=== PATIENT | male | born 1990 | race Caucasian/White ===

== ENCOUNTER 2017-01-07 13:11 | Emergency (ER) | payer MEDICAID ==
[2017-01-07 13:18] VITALS: TEMP 97.5
--- NOTE | 2017-01-07 14:39 | EDPHY ---
H & P Stated Complaint: N/V this morning ; pt states she thinks he's having a panic attack Time Seen by Provider: 01/07/17 14:38 - Medical/Surgical History Hx Asthma: No Hx Chronic Respiratory Disease: No Hx Diabetes: No Hx Cardiac Disease: No Hx Renal Disease: No Hx Cirrhosis: No Hx Alcoholism: No Hx HIV/AIDS: No Hx Splenectomy or Spleen Trauma: No Other PMH: PSH: shoulder separtion. PMH: Panic attacks; r wrist fx x2; L wrist fx; L thumb fx; - Social History Smoking Status: Former smoker Constitutional: Initial Vital Signs Temperature (C) 36.4 C 01/07/17 13:16 Heart Rate 71 01/07/17 13:16 Respiratory Rate 20 01/07/17 13:16 Blood Pressure 123/67 H 01/07/17 13:16 O2 Sat (%) 100 01/07/17 13:16 O2 Delivery Mode Room Air Allergies/Adverse Reactions: No Known Allergies Allergy (Verified 01/07/17 13:15) Home Medications: Medication Instructions Recorded LORazepam [Ativan 1 mg (RX)] 1 mg PO TID PRN #14 tab 01/07/17 Medical Decision Making ED Course/Re-evaluation: CHIEF COMPLAINT: Anxiety, panic attack HISTORY OF PRESENT ILLNESS: This patient is a 26 year old male with history of anxiety who presents to the Emergency Department complaining that he is experiencing a panic attack that he describes as similar to prior episodes. He describes nausea, vomiting, and intermittent chest pain with palpitations. He denies diaphoresis, dyspnea, or any additional complaints. No thoughts of self harm or harming others. He denies any recent stressful events. He has no additional complaints. REVIEW OF SYSTEMS: A 10 point review of systems was performed and is negative with the exception of the elements mentioned in the history of present illness. PHYSICAL EXAM: HR 71, BP 123/67, O2 Sat 100, RR 20. Temp noted General Appearance: Alert, well hydrated, appropriate, and non-toxic appearing. Head: Atraumatic without scalp tenderness or obvious injury Eyes: Pupils equal, round, reactive to light and accommodation, EOMI, no trauma , no injection. Ears: Clear bilaterally, no perforation, normal landmarks Nose: Atraumatic, no rhinorrhea, clear. Throat: There is no erythema or exudates, no lesions, normal tonsils, mucus membranes moist. Neck: Supple, 2+ carotid upstroke, nontender, no lymphadenopathy. Respiratory: No retractions, no distress, no wheezes, and no accessory muscle use. Lungs are clear to auscultation bilaterally. Cardiovascular: Regular rate and rhythm, no murmurs, rubs, or gallops. Bilateral carotid, radial, dorsalis pedis, and posterior tibial pulses intact. Good capillary refill all extremities. Gastrointestinal: Abdomen is soft, nontender, non-distended, no masses, no rebound, no guarding, no peritoneal signs. Musculoskeletal: Normal active ROM of all extremities, atraumatic. Neurological: Alert, appropriate, and interactive. The patient has normal DTRs and non-focal cranial nerves, motor, sensory, and cerebellar exam. Skin: No rashes, good turgor, no nodules on palpation. Past medical history: Anxiety with panic attacks Past surgical history: Denies Family history: Non-contributory Social history: Works at [employer], denies substance abuse DIFFERENTIAL DIAGNOSIS: Differential diagnosis for the patient's anxiety includes: generalized anxiety disorder, panic disorder, electrolyte abnormalities, or substance abuse. MEDICAL DECISION MAKING: This patient is a 26 year old male with history of anxiety who presents with symptoms reminiscent of prior panic attacks including chest pain and heart palpitations. He has no additional complaints. His exam is benign. I am not suspicious of cardiac etiology given the patient's age and presentation along with history of similar panic episodes. 1mg PO Ativan administered for anxiety. Will consult with counseling case manager to discuss appropriate outpatient management of the patient's anxiety. - Data Points Medications Given: Discontinued Medications Lorazepam (Ativan) 1 mg PO EDNOW ONE Stop: 01/07/17 14:44 Last Admin: 01/07/17 14:44 Dose: 1 mg Departure - Departure Disposition: Home, Routine, Self-Care Clinical Impression: Panic disorder, Anxiety Condition: Good Instructions: Panic Disorder (ED), Anxiety (ED) Additional Instructions: 1. Take Ativan as prescribed as needed for anxiety or panic attacks. 2. Schedule a follow-up appointment with a psychiatrist to discuss long-term management of your anxiety. You may use the resources provided by our counseling case manager. 3. Return to the Emergency Department if you experience worsening chest pain, pain radiating to your arm, neck or jaw, thoughts of self harm, worsening anxiety, or other serious concerns. Referrals: [facility],. [Clinic] - As per Instructions Prescriptions: LORazepam [Ativan 1 mg (RX)] 1 mg PO TID PRN #14 tab PRN Reason: Anxiety Report Scribed for: Too Collins Report Scribed by: Reny Card Date of Report: 01/07/17 Time of Report: 14:44
[2017-01-07] MEDS ORDERED: LORazepam 1 MG TAB PO ONE (14:43)
[2017-01-07] MEDS ORDERED: LORazepam 1 MG TAB ONE (14:43)
[2017-01-07 14:55] VITALS: BP 122/61; PULSE 70; RESP 16; O2SAT 97
== END 2017-01-07 14:55 | disposition home or self-care (01) ==
DX: F41.0 Panic disorder [episodic paroxysmal anxiety] (principal); Z87.891 Personal history of nicotine dependence

== ENCOUNTER 2017-07-28 18:10 | Emergency (ER) | payer MEDICAID ==
[2017-07-28 18:16] VITALS: BP 120/88; PULSE 85; RESP 20; TEMP 98.6; O2SAT 100
--- NOTE | 2017-07-28 18:30 | EDPHY ---
H & P Time Seen by Provider: 07/28/17 18:17 HPI/ROS: CHIEF COMPLAINT: Cramps HISTORY OF PRESENT ILLNESS: This patient is a 26 y/o male with history of anxiety complaining of finger and hand cramping. Just [employer], he went to the restroom because of nausea and began to feel very tense. He became anxious and then developed paresthesias in his extremities , associated with hyperventilation and tachycardia. Following this, he began to have spasms of his hands and arms and cramping throughout his body. He has had panic attacks in the past, but never so severe as today. He feels much better now. He denies any recent illness. No fever, abdominal pain, chest pain, or other associated symptoms. REVIEW OF SYSTEMS: A 10 point review of systems was performed and is negative with the exception of the elements mentioned in the history of present illness. Past Medical/Surgical History: Anxiety Social History: Friend at bedside. Former smoker. Student at [employer]. Smoking Status: Former smoker Physical Exam: General Appearance: Alert, appears anxious Eyes: Pupils equal and round, no conjunctival pallor or injection ENT, Mouth: Mucous membranes moist Neck: Normal inspection Respiratory: Lungs are clear to auscultation Cardiovascular: Regular rate and rhythm Gastrointestinal: Abdomen is soft and non- tender Neurological: A&O, nonfocal, normal gait Skin: Warm and dry Extremities: Normal inspection, no carpopedal spasm Psychiatric: Anxious Constitutional: Initial Vital Signs Temperature (C) 37.0 C 07/28/17 18:13 Heart Rate 85 07/28/17 18:13 Respiratory Rate 20 07/28/17 18:13 Blood Pressure 120/88 H 07/28/17 18:13 O2 Sat (%) 100 07/28/17 18:13 O2 Delivery Mode Room Air Allergies/Adverse Reactions: No Known Allergies Allergy (Verified 01/07/17 13:15) Home Medications: Medication Instructions Recorded NK [No Known Home Meds] 07/28/17 Medical Decision Making ED Course/Re-evaluation: 26 y/o male presents follow a panic attack sustained shortly prior to arrival. By the time of my interview, he is feeling better and is able to move his hands and arms normally. He still feels quite anxious and is experiencing some tightness in his muscles. Plan to administer 1mg PO Ativan for symptom relief. Plan to d/c home in good condition. I recommend follow up with PCP and his psychologist. He agrees to this. Return precautions discussed. The patient is comfortable with this plan. Differential Diagnosis: Includes though not limited to hypoglycemia, hypokalemia, dehydration - Data Points Medications Given: Discontinued Medications Lorazepam (Ativan) 1 mg PO EDNOW ONE Stop: 07/28/17 18:38 Last Admin: 07/28/17 18:48 Dose: 1 mg Departure - Departure Disposition: Home, Routine, Self-Care Clinical Impression: Panic attack Condition: Good Instructions: Anxiety (ED), Panic Attack (ED) Additional Instructions: 1. Please follow up with your primary care physician and your psychologist regarding this event. 2. Return to the emergency department if you develop chest pain, shortness of breath, fever, or other worsening of condition. Referrals: [facility] [Other] - As per Instructions Report Scribed for: Sudha Guerra Report Scribed by: Hanny Adams Date of Report: 07/28/17 Time of Report: 18:29 Physician Review and Approval Statement: 07/28/17 18:29 Portions of this note were transcribed by a registered medical transcriptionist. I personally performed a history, physical exam, medical decision making, and confirmed accuracy of information the transcribed note.
[2017-07-28] MEDS ORDERED: LORazepam 1 MG TAB PO ONE (18:37)
== END 2017-07-28 18:50 | disposition home or self-care (01) ==
DX: F41.0 Panic disorder [episodic paroxysmal anxiety] (principal); Z87.891 Personal history of nicotine dependence

== ENCOUNTER 2017-12-28 03:35 | Emergency (ER) | payer MEDICAID ==
[2017-12-28 03:43] VITALS: BP 142/88
[2017-12-28] MEDS ORDERED: IBUPROFEN 200 MG TAB PO ONE (05:00)
[2017-12-28] MEDS ORDERED: ALPRAZolam 1 MG TAB ONE (05:41)
[2017-12-28] MEDS ORDERED: LORazepam 1 MG TAB PO ONE (05:42)
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
== END 2017-12-28 06:22 | disposition home or self-care (01) ==
PROC: 0HQ0XZZ Repair Scalp Skin, External Approach (ICD-10-PCS; principal; 2017-12-28)
PROC: 0CQ1XZZ Repair Lower Lip, External Approach (ICD-10-PCS; principal; 2017-12-28)
DX: S01.01XA Laceration without foreign body of scalp, initial encounter (principal); S01.511A Laceration without foreign body of lip, initial encounter; Z87.891 Personal history of nicotine dependence; Y04.2XXA Assault by strike against or bumped into by another person, initial encounter; Y92.410 Unspecified street and highway as the place of occurrence of the external cause; Y99.8 Other external cause status; Y93.01 Activity, walking, marching and hiking

== ENCOUNTER 2018-02-12 13:30 | Emergency (ER) | payer MEDICAID ==
--- NOTE | 2018-02-12 16:03 | EDPHY ---
H & P Time Seen by Provider: 02/12/18 15:50 HPI/ROS: Chief complaint. Constipation HPI. 27-year-old male presents emergency department with constipation. He has a history of irregular bowel movements. He has had hard stool recently. Last bowel movement was February 03. Patient has tried MiraLax, self administered enema , magnesium citrate, another self administrated enema. He feels backed up. He has had gas but no stool. No change in activity or eating. No real abdominal pain though he feels backed up. No nausea vomiting or fever. No previous abdominal surgery ROS Constitutional. no fever/chills, no weakness Eyes. no problems with vision ENT. no sore throat, no nasal drainage Cardiovascular. no chest pain Respiratory. no shortness of breath, no cough Abdominal. Abdominal fullness and constipation . no problems urinating MS. no calf pain/swelling, no neck/back pain, no joint pain Skin. no rash Lymph. no swollen glands Neuro. no headache, no dizziness, no difficulty walking or with speech Past Medical/Surgical History: Shoulder separation, anxiety and panic attacks, orthopedic injuries Social History: Single, nonsmoker, no alcohol Smoking Status: Former smoker Physical Exam: General Appearance: Alert well-developed male mild distress vital signs are stable Eyes: Pupils equal and round no pallor or injection. ENT, Mouth: Mucous membranes are moist. Respiratory: There are no retractions, lungs are clear to auscultation. Cardiovascular: Regular rate and rhythm. Gastrointestinal: Abdomen is soft and nontender, no masses, bowel sounds normal. Neurological: Awake and alert, sensory and motor exams grossly normal. Skin: Warm and dry, no rashes. Musculoskeletal: Neck is supple nontender. Extremities symmetrical, full range of motion. Psychiatric: Patient is oriented X 3, there is no agitation. Constitutional: Initial Vital Signs Temperature (C) 36.6 C 02/12/18 13:49 Heart Rate 69 02/12/18 13:49 Respiratory Rate 16 02/12/18 13:49 Blood Pressure 109/26 L 02/12/18 13:49 O2 Sat (%) 96 02/12/18 13:49 O2 Delivery Mode Room Air Allergies/Adverse Reactions: No Known Allergies Allergy (Verified 01/07/17 13:15) Home Medications: Medication Instructions Recorded NK [No Known Home Meds] 07/28/17 Medical Decision Making - Diagnostics Imaging Results: Imaging Impressions Abdomen X-Ray 02/12/18 16:16 Impression: No radiographic evidence of acute intra-abdominal pathology One-view upright KUB shows no evidence of free air or air-fluid levels. However consistent with constipation ED Course/Re-evaluation: Re-evaluation 4:50 p.m.. Patient is stable. He and I discussed imaging study results, treatment plan including criteria for return importance of follow-up and further evaluation. He expresses understanding and agreement Differential Diagnosis: I considered constipation, perforated viscus ulcer, small-bowel obstruction. Departure - Departure Disposition: Home, Routine, Self-Care Clinical Impression: Abdominal pain Qualifiers: Abdominal location: periumbilical Qualified Code(s): R10.33 - Periumbilical pain Condition: Good Instructions: Constipation (ED), High Fiber Diet (ED) Additional Instructions: Drink 1 cup of GoLYTELY every 10-15 minutes until results. Return for worsening symptoms. Recheck in 1 day if not improving Referrals: NONE *PRIMARY CARE P,. [Primary Care Provider] - As per Instructions
[2018-02-12] MEDS ORDERED: PEG 3350/NA SULF,BICARB,CL/KCL (GAVILYTE-G) 4000 ML BTL PO ONE (16:49)
[2018-02-12 17:04] VITALS: BP 116/84
== END 2018-02-12 17:08 | disposition home or self-care (01) ==
DX: R10.33 Periumbilical pain (principal); Z87.891 Personal history of nicotine dependence

== ENCOUNTER 2018-08-13 17:36 | Emergency (ER) | payer MEDICAID ==
[2018-08-13 17:41] VITALS: BP 122/75
== END 2018-08-13 17:50 | disposition left against medical advice (07) ==
DX: Z53.21 Procedure and treatment not carried out due to patient leaving prior to being seen by health care provider (principal)